=== PATIENT | male | born 1995 | race Caucasian/White ===

== ENCOUNTER 2017-08-18 13:21 | Emergency (ER) | payer OTHER ==
[2017-08-18 13:28] VITALS: BP 132/64
[2017-08-18] MEDS ORDERED: SILVER SULFADIAZINE 1% CREAM 50 GM TP ONE (13:59)
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
== END 2017-08-18 14:27 | disposition home or self-care (01) ==
LOC: ER 13:21
DX: T22.232A Burn of second degree of left upper arm, initial encounter (principal); F17.200 Nicotine dependence, unspecified, uncomplicated
CPT/HCPCS: 99283; J3490